=== PATIENT | female | born 2000 ===

== ENCOUNTER 2020-09-03 11:50 | Outpatient (REF) | payer OTHER, SELFPAY ==
[2020-09-03 13:32] LABS: MANUAL DIFF FLAG NO
[2020-09-03 13:41] LABS: Basophils Percent Auto 0.5 % (0-2); Eosinophils Percent Auto 1.1 % (0-4); Hematocrit 39.6 % (37-47); Hemoglobin 13.1 g/dl (12.0-16.0); Imm Gran Abs Auto 0.01 X10*3/uL (0.00-0.03); Imm Gran Pct Auto 0.3 % (0.0-0.4); Lymphocytes Percent Auto 27.1 % (20-40); Mean Corpuscular HGB Conc 33.1 g/dl (31.0-35.0); Mean Corpuscular Hemoglobin 29.2 pg (27.0-33.0); Mean Corpuscular Volume 88.4 fL (80-98); Mean Platelet Volume 9.4 fL (9.4-12.3); Monocytes Absolute Auto 0.4 X10*3/uL (0.1-1.2); Monocytes Percent Auto 9.9 % (2-11); Neutrophils Absolute Auto 2.3 X10*3/uL (2.0-8.3); Neutrophils Percent Auto 61.1 % (45-73); Platelet Count 214 X10*3/uL (160-400); Red Blood Count 4.48 X10*6/uL (4.20-5.50); Red Cell Distribution Width 12.6 % (11.0-16.0); White Blood Count 3.7 X10*3/uL (4.8-10.8)
[2020-09-03 13:58] LABS: Alanine Aminotransferase 17 U/L (0-31); Alkaline Phosphatase 49 U/L (39-117); Anion Gap 13 (12-20); Aspartate Amino Transferase 25 U/L (5-31); Bilirubin Total 0.8 mg/dL (0.0-1.0); Blood Urea Nitrogen 10 mg/dL (9-16); Calcium 9.7 mg/dL (8.4-10.2); Carbon Dioxide 24 mmol/L (22-29); Chloride 107 mmol/L (96-108); Estimated Glomerular Filt Rate > 60; Glucose Random 62 mg/dL (60-115); Sodium 139 mmol/L (135-145)
[2020-09-03 14:24] LABS: TSH reflex Free T4 0.79 uIU/mL (0.32-4.0)
[2020-09-03 14:37] LABS: Erythrocyte Sedimentation Rate 5 MM/HR (0-20)
[2020-09-03 14:46] LABS: Folate 14.3 ng/mL (> or = 4.0); Vitamin B12 364 pg/mL (200-900)
[2020-09-04 07:46] LABS: Syphilis Screen Nonreactive (Nonreactive)
[2020-09-04 08:25] LABS: HIV AB/AG Nonreactive (Nonreactive); HIV Num 1 0.06 S/CO (0.00-0.99)
== END 2020-09-03 11:51 | disposition home or self-care (01) ==
LOC: HO.10HDL 11:50
PROVIDERS: Visit Provider Family Medicine
DX: Z00.00 Encounter for general adult medical examination without abnormal findings (principal); Z11.4 Encounter for screening for human immunodeficiency virus [HIV]; R20.2 Paresthesia of skin; E53.8 Deficiency of other specified B group vitamins
CPT/HCPCS: 36415; 80053; 82607; 82746; 84443; 85025; 85652; 86141; 86780; 87389

== ENCOUNTER 2020-09-11 09:03 | Outpatient (REF) | payer OTHER, SELFPAY ==
[2020-09-11 11:22] LABS: Alanine Aminotransferase 15 U/L (0-31); Alkaline Phosphatase 45 U/L (39-117); Anion Gap 12 (12-20); Aspartate Amino Transferase 24 U/L (5-31); Bilirubin Total 0.9 mg/dL (0.0-1.0); Blood Urea Nitrogen 11 mg/dL (9-16); Calcium 9.1 mg/dL (8.4-10.2); Carbon Dioxide 24 mmol/L (22-29); Chloride 109 mmol/L (96-108); Estimated Glomerular Filt Rate > 60; Glucose Fasting 89 mg/dL (60-99); Potassium 4.2 mmol/L (3.3-5.1); Sodium 141 mmol/L (135-145); Total Protein 6.6 g/dL (6.5-8.0)
[2020-09-14 18:22] LABS: Insulin Level Total 5.6 uIU/mL
== END 2020-09-11 09:04 | disposition home or self-care (01) ==
LOC: HO.WFDLDS 09:03
PROVIDERS: Visit Provider Family Medicine
DX: Z00.00 Encounter for general adult medical examination without abnormal findings (principal); E16.2 Hypoglycemia, unspecified
CPT/HCPCS: 36415; 80053; 83525

== ENCOUNTER 2020-09-22 09:53 | Outpatient (REF) | payer OTHER, SELFPAY ==
[2020-09-22 13:48] LABS: Anion Gap 11 (12-20); Blood Urea Nitrogen 9 mg/dL (9-16); Carbon Dioxide 26 mmol/L (22-29); Chloride 109 mmol/L (96-108); Estimated Glomerular Filt Rate > 60; Glucose Random 75 mg/dL (60-115); Potassium 4.3 mmol/L (3.3-5.1); Sodium 142 mmol/L (135-145)
[2020-09-23 21:41] LABS: Lyme Abs Screen <0.90 index
== END 2020-09-22 09:54 | disposition home or self-care (01) ==
LOC: HO.WFDLDS 09:53
PROVIDERS: Visit Provider Family Medicine
DX: Z01.84 Encounter for antibody response examination (principal); R20.2 Paresthesia of skin; E16.2 Hypoglycemia, unspecified
CPT/HCPCS: 36415; 80048; 86617; 86618